=== PATIENT | male | born 1950 | race Caucasian/White ===

== ENCOUNTER 2019-11-08 11:18 | Emergency (ER) | payer MEDICARE, SELFPAY ==
[2019-11-08 11:28] VITALS: BP 159/105; PULSE 101; RESP 18; TEMP 37.1; O2SAT 97; BMI 26.4
--- NOTE | 2019-11-08 11:35 | XRR_ITS ---
PROCEDURE INFORMATION: Exam: XR Chest, 1 View Exam date and time: 11/08/2019 11:43 AM Age: 69 years old Clinical indication: Cough and dyspnea; Smoker's cough; Additional info: Dyspnea/cough TECHNIQUE: Imaging protocol: XR of the chest Views: 1 view. COMPARISON: No relevant prior studies available. FINDINGS: Lungs: Faint airspace disease in the right upper lobe. Possible pneumonia. No pulmonary vascular congestion or pulmonary edema. Pleural space: No pleural effusion or pneumothorax. Heart/Mediastinum: The cardiac silhouette is not enlarged. The mediastinal contours are normal. Bones/joints: No acute osseous abnormality. XR/XR chest 1V portable [id number] IMPRESSION: Faint right upper lobe airspace disease. Pneumonia is possible.
--- NOTE | 2019-11-08 11:35 | ECG_ITS ---
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 Measurements Intervals [place] Rate: 92 P: 51 AR: 168 QRS: 13 QRSD: 93 T: 75 QT: 348 QTc: 432 Interpretive Statements SINUS RHYTHM WITH OCCASIONAL SUPRAVENTRICULAR PREMATURE COMPLEXES NONSPECIFIC ST & T-WAVE ABNORMALITY No previous ECG available for comparison Electronically Signed On 11-08-2019 16:06:06 CDT by Adal Freitas M.D. [id number]
--- NOTE | 2019-11-08 12:13 | PC.NURSE ---
EKG done at 1207 and shown to ER doctor
[2019-11-08 12:38] LABS: Basophils % 0.6 %; Lymphocytes # 0.9 10^3/uL (0.8-4.8); Lymphocytes % 29.1 %; Mean Corpuscular HGB Conc 31.8 g/dL (30.0-36.0); Mean Corpuscular Hemoglobin 28.3 pg (28.0-34.0); Mean Corpuscular Volume 89.1 fL (80-94); Mean Platelet Volume 9.5 fL (7.4-10.4); Monocytes # 0.4 10^3/uL (0.2-0.9); Monocytes % 13.8 %; Neutrophils # 1.81 10^3/uL (1.8-7.7); Neutrophils % 56.5 %; Nucleated Red Blood Cells % 0 %; Platelet Count 192 10^3/cmm (130-400); Red Blood Count 4.94 10^6/uL (4.1-5.3); Red Cell Distribution Width 12.4 % (12.1-15.1); White Blood Count 3.2 10^3/uL (4.0-10.0)
[2019-11-08 12:45] VITALS: BP 174/107; PULSE 97; RESP 18; O2SAT 96
--- NOTE | 2019-11-08 12:46 | W.ED.GENADLT ---
HPI - General Adult General: Chief complaint: General Medical Stated complaint: sob/low bs Time Seen by Provider: 11/08/19 12:31 History of Present Illness: HPI narrative: Patient states that he had a dry mouth last night and was urinating more thought maybe it was a sugar recheck his sugars fine. He comes in today because he has been off all his medications for over a week he just moved here from [place]. He stopped his blood pressure medicine and prostate medicine and cholesterol medicine. Does take melatonin to help him sleep. Is willing get started back on blood pressure medication denies any other symptoms presently except for possibly anxiety from taking care of his mother who has Alzheimer's patient said he did feel short of breath when he is anxious last night but the shortness of breath is gone. complaint: Anxiety Onset (ago): hour(s) Severity: mild Severity scale (1-10): 3 Associated symptoms: Reports no associated symptoms; Deny chest pain, dyspnea, headache(s), nausea, rash or vomiting Treatments prior to arrival: none Review of Systems Const: Denies: fever(s), chills or body aches Eyes: Denies: change in vision or blurry vision ENMT: Denies: throat pain or nasal congestion Card: Reports: other (Hypertension); Denies: chest pain or dyspnea on exertion Resp: Denies: dyspnea, productive cough or non-productive cough GI: Denies: abdominal pain, nausea or vomiting : Denies: difficulty urinating Musc: Denies: extremity pain Skin/Breast: Denies: rash Neuro: Denies: headache(s) Psych: Reports: anxiety; Denies: depression Isaac/Lymph: Denies: easy bruising Physical Exam Const: COMMON NORMALS: no acute distress, average body habitus and patient oriented x3 HENMT: COMMON NORMALS: normocephalic HEAD & SCALP: normal to inspection and normocephalic FACE & SINUS: normal facial exam Eye: COMMON NORMALS: conjunctivae normal GENERAL EYE: appearance normal, both eyes and all related structures CONJUNCTIVA: Yes conjunctivae normal Neck/C-Spine: COMMON NORMALS: no JVD Chest: COMMONS NORMALS: normal inspection of the chest Resp: COMMON NORMALS: normal respiratory effort and clear to auscultation bilaterally AUSCULTATION: clear to auscultation bilaterally Cardio: COMMON NORMALS: no JVD, regular rate and regular rhythm RATE: regular rate RHYTHM: regular rhythm GI: COMMON NORMALS: Normal to inspection, nondistended, normoactive bowel sounds present Extremity: COMMON NORMALS: normal to inspection and full ROM Neuro: COMMON NORMALS: patient oriented x3 Psych: COMMON NORMALS: mental status grossly normal, Normal thought process present, cooperative, normal affect and speech normal ATTITUDE: Yes calm SPEECH: Yes normal speech THOUGHT PROCESS: Normal thought process present Course Vital Signs: Vital signs: Vital Signs Temperature 98.7 F 11/08/19 11:28 Pulse Rate 101 H 11/08/19 11:28 Respiratory Rate 18 11/08/19 11:28 Blood Pressure 159/105 11/08/19 11:28 Pulse Oximetry 97 11/08/19 11:28 [facility] - General Adult Lab Data: Labs: Lab Results 11/08/19 Range/Units 12:21 WBC 3.2 L (4.0-10.0) 10^3/ uL RBC 4.94 (4.1-5.3) 10^6/u L Hgb 14.0 (11.7-16.6) g/dL Hct 44.0 (42.0-52.0) % MCV 89.1 (80-94) fL MCH 28.3 (28.0-34.0) pg MCHC 31.8 (30.0-36.0) g/dL RDW 12.4 (12.1-15.1) % Plt Count 192 (130-400) 10^3/c mm MPV 9.5 (7.4-10.4) fL Neut % (Auto) 56.5 % Lymph % (Auto) 29.1 % [place] % (Auto) 13.8 % Eos % (Auto) 0.0 % Baso % (Auto) 0.6 % Neut # (Auto) 1.81 (1.8-7.7) 10^3/u L Lymph # (Auto) 0.9 (0.8-4.8) 10^3/u L [place] # (Auto) 0.4 (0.2-0.9) 10^3/u L Eos # (Auto) 0.0 (0.0-0.8) 10^3/u L Baso # (Auto) 0.0 (0.0-0.1) 10^3/u L Nucleated RBC % (a uto) 0 % Nucleated RBCs # 0.0 /100WBC Coding Level of Care Code ED Back Feeder [employer] Layup Line for Chg Fwd Exam Comprehensive
[2019-11-08 12:54] LABS: Alanine Aminotransferase 22 U/L (0-41); Albumin Level 4.6 g/dL (3.5-5.2); Alkaline Phosphatase 49 IU/L (40-130); Anion Gap 16.8 (5-19); Aspartate Amino Transferase 28 U/L (0-40); Blood Urea Nitrogen 17 mg/dL (8-23); Carbon Dioxide 24 mmol/L (22-29); Chloride 99 mmol/L (98-107); Globulin 2.7 g/dL (1.3-4.6); Glucose 111 mg/dL (65-115); Lipase 33 U/L (13-60); Osmolality Calculated 279 mOsm/kg (285-295); Potassium 3.8 mmol/L (3.5-5.1); Sodium 136 mmol/L (136-145); Total Bilirubin 0.4 mg/dL (0.15-1.2); Total Protein 7.3 g/dL (6.6-8.7)
[2019-11-08 13:12] LABS: Calcium 9.5 mg/dL (8.5-10.5)
[2019-11-08 13:30] LABS: Add Urine Microscopic? NO
[2019-11-08 13:35] LABS: Bilirubin Urine Neg (NEGATIVE); Blood Urine Neg (Negative); Glucose Urine UA Norm (Normal); Ketones Urine 1+ (Negative); Leukocyte Esterase Urine Negative (Negative); Nitrate Urine Negative (Negative); Protein Urine Neg (Negative); Specific Gravity, Urine 1.015 (1.005-1.030); Urine Appearance Clear (CLEAR); Urine Color Yellow (Yellow); Urobilinogen Urine Neg (Negative); pH Urine 6 (5-7)
[2019-11-08 13:56] VITALS: BP 179/112; PULSE 88; RESP 18; O2SAT 96
--- NOTE | 2019-11-08 13:59 | PC.NURSE ---
informed provider deo of bp of 179/112 verbalized understanding. vo with readback to continue with dc.
[2019-11-08 14:15] LABS: Glucose Point of Care 110 mg/dL (70-110)
== END 2019-11-08 14:02 | disposition home or self-care (01) ==
PROVIDERS: Family Medicine; Emergency Provider Nurse Practitioner Family
DX: R06.02 Shortness of breath (principal); R73.9 Hyperglycemia, unspecified
CPT/HCPCS: 12345; 36416; 71045; 80053; 81003; 82962; 83690; 85025; 93005; 99282; 99283